=== PATIENT | female | born 1965 | race Caucasian/White ===

== ENCOUNTER 2017-08-31 08:03 | Day surgery (SDC) | payer BC ==
[~2017-08-31] VITALS: Ht 165.1 cm; Wt 85.7 kg
[~2017-08-31 08:03] MED LIST: ATORVASTATIN CA20 MG PO; CIPROFLOXACIN750 MG PO; ESTRADIOL1 MG PO; FLUOXETINE HCL20 MG PO; IRBESARTAN150 MG PO; LEVOTHYROXINE88 MCG PO; PERCOCET 7.5-31 EACH PO
--- NOTE | 2017-08-31 10:20 | NUR ---
08/31/17 1020 Wendy Madden REPORT FROM [employer] OPER[employer].
--- NOTE | 2017-09-01 13:16 | OR ---
[facility] [address], [place] [address] Signed DATE OF PROCEDURE: 08/31/17 PREOPERATIVE DIAGNOSES Small external hemorrhoids. Rectal bleeding. Anal pain/tenesmus. Personal history of colonic polyps. History of irritable bowel syndrome with diarrhea. POSTOPERATIVE DIAGNOSES Unspecified proximal colitis (probable prep irritation). Moderate internal hemorrhoids. Small external hemorrhoids. Probable posterior midline anal fissure. PROCEDURE: Colonoscopy with cold biopsy. ESTIMATED BLOOD LOSS: None. INDICATIONS Amna is a 51-year-old female who happens to work at a local [employer]. 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 Recently she has had a lot of trouble with pain around the anus and rectal bleeding. She had a colonoscopy done a number of years ago and was told she had irritable bowel syndrome with diarrhea. She went to her primary care provider. On exam, she had pain and 2 small noninflamed external hemorrhoids. There seemed to be large hemorrhoids that were filling the anoscope during the exam. At that time, her stool was guaiac negative. She was therefore asked to see me with respect to the above. In our office, she is worried about 2 relatives that have celiac sprue. Consequently, she was going to try a gluten free diet. She mentioned her chronic diarrhea as well along with some abdominal pain. On exam, we could see these 2 small external hemorrhoids. She has excellent perianal hygiene. There was no irritation. On digital rectal exam, she seemed to have pain everywhere. We had felt the anterior midline and that seemed to be fine. There was concern that she had more pain in the posterior midline and maybe she has a fissure in that area. We decided we would take her for a colonoscopy. I gave her a booklet on colonoscopy as well as hemorrhoids and fissures. We went through that in detail. I asked her to purchase Benefiber and take it twice a day. I also asked her to purchase Balneol lotion and apply that to the anus twice a day and as needed. She is welcome to use copious amounts of Vaseline just prior to bowel movement to help lubricate the anal canal to reduce the friction and relieve some of her pain. Usually, an acute anal fissure will heal if one treats it appropriately. I also gave her a pamphlet on colonoscopy and we looked at that Electronically Signed By: BRY ANGLIN MD 09/01/17 1316 PATIENT NAME: AMNA GARG OPERATIVE REPORT DATE OF : 65 PHYSICIAN: BRY ANGLIN MD REPORT #: [id number] REPORT IS CONFIDENTIAL AND NOT TO BE RELEASED WITHOUT AUTHORIZATION [address] [address] Signed together in detail. She understands the nature of that test along with its risks including but not limited to gas bloating, crampy abdominal pain, bleeding, perforation requiring surgery, and missed diagnosis. She had expressed understanding and wished to proceed. We talked about IV conscious sedation. She has anxiety and panic attacks. She has also been using Oxycodone 7.5 mg. In addition, she has several shots of alcohol every week. However, she thought she would do fine with her Versed and Fentanyl and wanted to proceed in that direction knowing that we might need an anesthesia provider that would possibly require rescheduling her case. She had expressed understanding and wished to proceed. PROCEDURE IN DETAIL Amna was taken into our endoscopy suite and placed in the left lateral decubitus position. She was given 10 mg of Versed and 200 mcg of Fentanyl, was still talking and looking around the room. Again, she has 2 small stationary fireman al hemorrhoids, they are not irritated and she has excellent perianal hygiene. She has good sphincter tone. Really not anything hypertensive around the anal sphincters. On this occasion though, there appears to be a divot in the posterior midline and she said that that seems to be where most of her pain is. The adult colonoscope was then introduced and we made it up to about 35 cm and she simply could not tolerate any further advancement. Consequently, we had to have an anesthesia provider come in the room. We added a fair amount of Propofol and that helped, we were able to then pass the scope around into the cecum. Her prep was good. She had a little irritation around the cecum and the right colon, most likely from her prep. We went and took some biopsies of the cecum, right colon, transverse colon, left colon, sigmoid colon, and her rectum. Really no obvious evidence of colitis that we would see with Crohn's or ulcerative colitis. Once in the rectum, we had retroflexed the scope and I could see that she do e s have [id number] internal hemorrhoid tissue. We looked carefully and there was a little bit of a divot on the side and I suspect that is the area that is bothering her. Again, these usually heal. After this, the gas was suctioned out. The colonoscope removed. Overall, Aman tolerated the procedure well. RECOMMENDATIONS I will see Amna back in my office in a week or 2 for follow-up. If she continues to have issue, she may need an exam under anesthesia with removal of the 2 small external hemorrhoids and possibly sphincterotomy. Bry Anglin MD [facility] Electronically Signed By: BRY ANGLIN MD 09/01/17 1316 PATIENT NAME: AMNA GARG OPERATIVE REPORT DATE OF : 65 PHYSICIAN: BRY ANGLIN MD REPORT #: [id number] REPORT IS CONFIDENTIAL AND NOT TO BE RELEASED WITHOUT AUTHORIZATION [address], [place] [address] Signed /[id number] cc: Ceferino Argueta MD Electronically Signed By: BRY ANGLIN MD 09/01/17 1316 PATIENT NAME: AMNA GARG OPERATIVE REPORT DATE OF : 65 PHYSICIAN: BRY ANGLIN MD REPORT #: [id number] REPORT IS CONFIDENTIAL AND NOT TO BE RELEASED WITHOUT AUTHORIZATION
== END 2017-08-31 11:16 | disposition home or self-care (01) ==
LOC: OPS 08:03 → DS 08:03 → OPS 10:30 → DS 09-05 10:30
PROVIDERS: Colon & Rectal Surgery
PROC: 0DBL8ZX Excision of Transverse Colon, Via Natural or Artificial Opening Endoscopic, Diagnostic (ICD-10-PCS; 2017-08-31)
PROC: 0DBN8ZX Excision of Sigmoid Colon, Via Natural or Artificial Opening Endoscopic, Diagnostic (ICD-10-PCS; 2017-08-31)
PROC: 0DBP8ZX Excision of Rectum, Via Natural or Artificial Opening Endoscopic, Diagnostic (ICD-10-PCS; 2017-08-31)
PROC: 0DBF8ZX Excision of Right Large Intestine, Via Natural or Artificial Opening Endoscopic, Diagnostic (ICD-10-PCS; 2017-08-31)
PROC: 0DBG8ZX Excision of Left Large Intestine, Via Natural or Artificial Opening Endoscopic, Diagnostic (ICD-10-PCS; 2017-08-31)
PROC: 0DBH8ZX Excision of Cecum, Via Natural or Artificial Opening Endoscopic, Diagnostic (ICD-10-PCS; principal; 2017-08-31 10:30)
DX: K64.8 Other hemorrhoids (principal); K64.4 Residual hemorrhoidal skin tags; F17.210 Nicotine dependence, cigarettes, uncomplicated; Z90.710 Acquired absence of both cervix and uterus; Z98.890 Other specified postprocedural states; Z86.010 Personal history of colon polyps; Z90.722 Acquired absence of ovaries, bilateral; Z88.8 Allergy status to other drugs, medicaments and biological substances
CPT/HCPCS: 00810; J2250; J2704; J3010; J7120